=== PATIENT | male | born 1945 | race Caucasian/White ===

== ENCOUNTER → 2016-08-24 | Outpatient (CLI) | payer OTHER | LOC: MMPC 11:11 | PROVIDERS: ATTEND Internal Medicine | DX: H92.02 Otalgia, left ear (principal); E11.9 Type 2 diabetes mellitus without complications; E78.5 Hyperlipidemia, unspecified; I10 Essential (primary) hypertension; H81.01 Meniere's disease, right ear; R26.89 Other abnormalities of gait and mobility; H83.2X1 Labyrinthine dysfunction, right ear; B02.21 Postherpetic geniculate ganglionitis | CPT/HCPCS: 99213; G0463 ==

== ENCOUNTER → 2016-09-08 | Outpatient (CLI) | payer OTHER | LOC: MMPC 09:00 | PROVIDERS: ATTEND Internal Medicine | DX: E11.9 Type 2 diabetes mellitus without complications (principal) | CPT/HCPCS: G0108 ==

== ENCOUNTER → 2016-09-28 | Outpatient (CLI) | payer OTHER ==
[2016-09-28 08:52] LABS: HEMOGLOBIN A1C 9.05 % (4.2-6.0); MEAN BLOOD GLUCOSE (CALC) 215.365 mg/dL
== END ==
LOC: LAB 08:01
PROVIDERS: ATTEND Internal Medicine
DX: E11.9 Type 2 diabetes mellitus without complications (principal)
CPT/HCPCS: 36415; 83036

== ENCOUNTER → 2016-09-29 | Outpatient (CLI) | payer OTHER | LOC: MMPC 11:11 | PROVIDERS: ATTEND Internal Medicine | DX: E11.9 Type 2 diabetes mellitus without complications (principal) | CPT/HCPCS: 99213; G0463 ==

== ENCOUNTER → 2016-10-06 | Outpatient (CLI) | payer OTHER | LOC: MMPC 10:00 | PROVIDERS: ATTEND Internal Medicine | DX: E11.9 Type 2 diabetes mellitus without complications (principal); Z71.3 Dietary counseling and surveillance | CPT/HCPCS: G0108 ==

== ENCOUNTER → 2016-12-26 | Outpatient (CLI) | payer OTHER ==
[2016-12-26 08:16] LABS: HEMOGLOBIN A1C 7.88 % (4.2-6.0)
[2016-12-26 11:34] LABS: CREATININE, URINE 33.8 MG/DL (15-500)
== END ==
LOC: LAB 07:51
PROVIDERS: ATTEND Internal Medicine
DX: E11.9 Type 2 diabetes mellitus without complications (principal)
CPT/HCPCS: 36415; 82043; 83036

== ENCOUNTER → 2016-12-29 | Outpatient (CLI) | payer OTHER | LOC: MMPC 11:11 | PROVIDERS: ATTEND Internal Medicine | DX: E11.9 Type 2 diabetes mellitus without complications (principal); J01.90 Acute sinusitis, unspecified; Z79.4 Long term (current) use of insulin | CPT/HCPCS: 99214; G0463 ==

== ENCOUNTER 2017-02-06 18:45 | Emergency (ER) | payer OTHER ==
[2017-02-06 19:10] VITALS: RESP 18; TEMP 97.9
[2017-02-06] MEDS ORDERED: HYDROcodone-APAP 5 MG -325 MG TABLET PO SCH (19:49)
[2017-02-06] MEDS ORDERED: HYDROcodone-APAP 5 MG -325 MG TABLET PO ONE (19:53)
--- NOTE | 2017-02-06 20:14 | PDOC ---
Gen Adult / Medical Screen HPI - General Chief Complaint: Upper Extremity Problem/Injury Stated Complaint: Left shoulder and left arm pain possible injury Date Seen by Provider: 02/06/17 Time Seen by Provider: 18:45 Source: POSITIVE: Patient, Spouse - History of Present Illness Initial Comments: Patient is a 71-year-old male who presents to the emergency department chief complaint of left shoulder and left forearm pain. Patient states that approximately 30 minutes ago he was lifting a very heavy couch when he felt a pop in his left shoulder and left forearm. 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 He states initially he felt pain in his left shoulder that also radiated down into his left forearm. Attempted examination he has reproducible tenderness on his left forearm mild reproduction of tenderness in the left shoulder. 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 He denies any neck pain chest pain shortness of breath blurred vision double vision or syncope. He denies any exacerbating symptoms. The pain is sharp in nature. Body Location Affected: REPORTS: Upper Extremity (L) - Patient Home Medications Home Medications: Home Medications Glipizide 1 tab ORAL BID #180 tab 09/05/13 Losartan Potassium 1 tab PO DAILY #90 tab 09/05/13 Rosuvastatin Calcium [Crestor] 1 tab PO HS #90 tab 09/05/13 Cetirizine HCl [Zyrtec] 10 mg PO PRN 12/23/13 Fluocinolone Acetonide [Synalar] 60 ml TOPICAL QD #1 bottle 03/23/16 Sitagliptin Phosphate [Januvia] 1 tab PO DAILY #90 tab 10/04/16 Pen Needle, Diabetic [Pen Needle] 1 each QHS #100 each 10/06/16 Canagliflozin [Invokana] 1 tab PO DAILY #90 tab 10/28/16 Insulin Detemir [Levemir Flextouch] 20 unit SUBCUT QHS #6 each 11/02/16 HYDROcodone/APAP 5/325 Tab [[place] 5/325 Tab] 1 tab PO Q4H PRN #12 tablet Ibuprofen [Motrin] 600 mg PO Q6H #30 tablet 02/06/17 - Patient Allergies Allergies/Adverse Reactions: Allergies Allergy/AdvReac Type Severity Reaction Status Date / Time atorvastatin calcium AdvReac Intermediate irritabilit Verified 02/06/17 19:10 [From Lipitor] y erythromycin base AdvReac Intermediate NAUSEA Verified 02/06/17 19:10 Past Medical History - heen HEENT History: Cataracts, Hard of Hearing, Meniere's Disease Additional HEENT History: HAS STEVENS/MARTINEZ SYNDROME: VISION CHANGES, SHORT TERM MEMORY LOSS, Cardiovascular History: Hyperlipidemia Additional Respiratory History: SEVERE SINUSITIS/BRONCHITIS-6 MONTH Gastrointestinal History: Denies History Genitourinary History: Denies History Endocrine History: Type 2 Diabetes (insulin) Musculoskeletal History: Arthritis Prosthesis or Implant: Yes (NECK) Additional Musculoskeletal History: DEGENERATION OF CERVICAL DISCSCERVICAL FUSION Neurological History: Motion Sickness Additional Neurological History: SHAHLA CALDWELL- 95% OF THE BALANCE NERVES ARE GONEMENIERIEVERTIGO Blood Disorders: Denies History Psychiatric History: Denies History History of Sexually Transmitted Diseases: No Male Reproductive History: Denies History Cancer History: Denies History In Past Year Been Physically Harmed or Verbally Threatened: No History of MDRO: No History of Other Communicable Diseases: No Tobacco Use: Former Smoker Alcohol Use: Rarely Substance Use Type: None Previous Surgical History: Yes Type / Date of Surgery: APPY/ C3-5 FUSION/ R CTR/ COLONOSCOPY/ BILAT INGUINAL HERNIA/ RIGHT KNEE SCOPE/ R SHOULDER SCOPE/ PROSTATECTOMY/ TONSILLECTOMY/ RIGHT ULNAR NERVE / VARICOCOELE LEFT/SINUS SX Anesthesia Reactions: No Malignant Hyperthermia: No Significant Family History: Heart disease, Cancer, COPD ROS - Limitations ROS Limitations: No Limitations Constitution: REPORTS: Denies Symptoms Cardiovascular: REPORTS: Denies Cardiac Symptoms Respiratory: REPORTS: Denies Resp Symptoms Neurological: REPORTS: Denies Neuro Symptoms Gastrointestinal: REPORTS: Denies GI Symptoms Endocrine: REPORTS: Denies Symptoms Musculoskeletal: REPORTS: Other (Pain in his left shoulder and the left proximal forearm.) Genitourinary: REPORTS: Denies Symptoms Eyes: REPORTS: Denies Symptoms ENT: REPORTS: Denies Symptoms Skin: REPORTS: Denies Skin Symptoms Lympathic: REPORTS: Denies Lympathic Symptoms Immunologic: POSITIVE: Denies Symptoms Psychiatric: POSITIVE: Denies Psych Symptoms Gen Adult/Medical Screen Exam - General Appearance General Appearance: POSITIVE: Alert, Cooperative, No Acute Distress - HEENT HEENT: POSITIVE: Head Inspection Nml, Eyes Inspection Nml, Oral/Dental Inspect. Nml, Pharynx Inspect. Nml, PERRL, EOMI - Pupils Pupil Size: 4 mm: Bilateral - Neck Neck: POSITIVE: Normal Inspection - Respiratory Respiratory: POSITIVE: No Respiratory Distress - Cardiovascular Cardiovascular: POSITIVE: Regular Rate & Rhythm, No Murmur, No Gallop, PMI Normal - Abdomen Abdomen: Soft: (All Quadrants), Denies Tenderness: (All Quadrants), No Distention: (All Quadrants), No Rigidity: (All Quadrants) - Back Back: POSITIVE: Normal Inspection - Neurological / Psychological Mental Status: POSITIVE: Mood Normal, Affect Normal Orientation: POSITIVE: Oriented x 3 Reflexes: Bicep (R): 2+, Bicep (L): 1+ - Skin Skin: POSITIVE: Normal Color, Warm, Dry, No Rash - Extremities Extremity: Tender: (LLE), Ecchymosis: (LLE) Additional Extremities Details: 4 out of 5 to flexion of the left upper extremity 5 out of 5 flexion of the right upper extremity. Reproducible tenderness and swelling along the bicipital groove and the occipital portion of the dorsal aspect of the forearm. Hook test positive for the distal insertion of the biceps tendon. Gen Adlt/Medical Scrn Progress - Results Reviewed by me Xrays/CTs/US Reviewed by me: Yes Radiology Findings: Left shoulder hardware appears intact nondisplaced no obvious fractures or lesions. - Patient's Progress Pain Medication Addressed: POSITIVE: Patient Refused Status: POSITIVE: Improved MDM / ED Course: Patient was evaluated in the emergency department. The patient does have reproducible tenderness in the left shoulder and the left proximal portion of the forearm. There is mild swelling and ecchymosis on the left proximal portion of the forearm. Hook test was found to be positive. Patient is able to flex the forearm to 4 out of 5 strength. Bedside ultrasonography was performed by myself to evaluate the distal portion of the biceps tendon I cannot directly visualize secondary to edema however there is no obvious disruption in the tendon. The proximal head of the biceps tendon could not be visualized secondary to excessive scar tissue following the patient's left shoulder replacement. X-ray did not reveal any obvious osseous abnormality of the shoulder. I offered pain medication however the patient states he felt fine. I discussed these findings with Dr. Mesa (orthopedist) who recommended placing the patient in a long-arm posterior splint and sling and evaluation in 3-5 days by ortho for a partial tendon rupture. Patient is agreeable to this. Patient will be discharged home with Motrin 600 mg retaken every 6 hours if you [place] 5/325 for breakthrough pain. Patient understands the plan of care and agrees - Consult Consult (If Yes, Name of Consulting MD & Time Called): Yes (Bonita) Patient Care Time - Estimated PCT Patient Care Time (In Minutes): 90 Vital Signs - Recent Vital Signs Vital Signs: Vital Signs (Last 8 hours) Temp Pulse Resp BP Pulse Ox 02/06/17 19:01 97.9 F 87 18 119/104 92 Discharge Clinical Impression: Rupture of biceps tendon, Shoulder pain, acute Condition: Stable Prescriptions / Orders: Ibuprofen [Motrin] 600 mg PO Q6H #30 tablet HYDROcodone/APAP 5/325 Tab [[place] 5/325 Tab] 1 tab PO Q4H PRN #12 tablet PRN Reason: Pain Patient Instructions Given at Discharge: Tendon Rupture (ED), Shoulder Pain (ED ) Additional Instructions: Rest, ice extremity. Follow-up with your orthopedist in the next 5-7 days. Follow Up With: Ritesh Mesa [STAFF PHYSICIAN] - CECILIO ORDOÑEZ [Primary Care Provider] -
--- NOTE | 2017-02-06 20:16 | DI ---
LEFT SHOULDER, 02/06/2017 7:22 PM: Clinical History: Left shoulder and left arm injury. Previous Exam: 10/10/2014. 3 views are submitted. Since the previous exam, the patient is status post total reverse left shoulde r replacement. The prosthetic device articulates normally. There is no evidence of loosening of the p rosthesis. No acute fracture is noted. The patient is status post resection of the lateral head of th e clavicle. The visualized portions of the left apex and lung are normal. Readin. There is no acute fracture or dislocation. 2. Status post total left reverse shoulder replacement without evidence of loosening of the prosthes is. The patient is status post resection of the lateral head of the clavicle.
== END 2017-02-06 19:55 | disposition home or self-care (01) ==
LOC: ER 18:45
DX: S46.212A Strain of muscle, fascia and tendon of other parts of biceps, left arm, initial encounter (principal); M79.632 Pain in left forearm; M25.512 Pain in left shoulder; E11.9 Type 2 diabetes mellitus without complications; Z79.4 Long term (current) use of insulin; X50.0XXA Overexertion from strenuous movement or load, initial encounter
CPT/HCPCS: 73030; 99282

== ENCOUNTER → 2017-02-13 | Outpatient (CLI) | payer OTHER | LOC: MMPC 10:00 | PROVIDERS: ATTEND Orthopaedic Surgery | DX: S46.912A Strain of unspecified muscle, fascia and tendon at shoulder and upper arm level, left arm, initial encounter (principal); Z96.612 Presence of left artificial shoulder joint; X50.0XXA Overexertion from strenuous movement or load, initial encounter | CPT/HCPCS: 99214; G0463 ==